=== PATIENT | male | born 1990 | race Caucasian/White ===

== ENCOUNTER → 2018-10-20 09:20 | Outpatient (CLI) | payer BC, SELFPAY ==
[2018-10-20 09:38] LABS: Absolute Lymphocyte Count 2.49 X10^3/ul (0.83-4.51); Absolute Neutrophil Count 4.4 X10^3/uL (2.0-7.7); Basophil# 0.03 X10^3/uL; Basophil% 0.4 % (0-1); Eosinophil# 0.06 X10^3/uL; Eosinophils% 0.8 % (0-5); Hematocrit 44.9 % (40-54); Hemoglobin 15.3 g/dl (13.0-16.5); Lymphocyte # 2.49 X10^3/ul (4.0); Lymphocyte % 32.9 % (19-41); Mean Corp Hgb Conc 34.1 g/gl (32-36); Mean Corpuscular Hgb 29.8 pg (27.0-32.0); Mean Corpuscular Volume 87.5 fL (80-94); Mean Platelet Vol. 8.8 fl (6.2-12.0); Monocyte# 0.56 X10^3/uL; Monocyte% 7.4 % (0-10); Neutrophil % 58.1 % (47-70); POSITIVE COUNT NO; POSITIVE DIFFERENTIAL NO; POSITIVE MORPHOLOGY NO; Platelet Count 227 K/mm3 (150-450); RBC Distribution Width CV 12.3 % (11.6-14.6); RBC Distribution Width SD 39.3 fl (35.1-43.9); Red Blood Count 5.13 M/mm3 (4.6-6.2); White Blood Count 7.6 K/mm3 (4.4-11.0)
[2018-10-20 09:52] LABS: ALB/GLOB Ratio 1.2 RATIO (0.9-2.4); AST(SGOT) 19 U/L (15-37); Alanine Aminotransfer ALT/SGPT 57 U/L (16-61); Albumin, Serum 4.1 g/dL (3.2-5.0); Alkaline Phosphatase 76 U/L (45-117); Amylase 38 U/L (25-115); Anion Gap 8 (5-15); BUN 15 mg/dL (7-18); BUN/Creat Ratio 17.5 RATIO (10-20); Chloride 107 mmol/L (98-107); Creatinine, Serum 0.86 mg/dL (0.70-1.30); EST Glomerular Filtration Rate 113 mL/min (>60); Est Glom Filt Rate - Afr Amer 137 mL/min (>60); Globulin 3.3 g/dL (2.2-4.2); Glucose 112 mg/dL (74-106); Lipase 145 U/L (73-393); Potassium 4.3 mmol/L (3.5-5.1); Protein, Total 7.4 g/dL (6.4-8.2); Sodium Level 141 mmol/L (136-145)
--- NOTE | 2018-10-20 10:12 | CT_ITS ---
STUDY: CT ABDOMEN AND PELVIS WITH CONTRAST REASON FOR EXAM: Male, 28 years old. 5 day history of left lower quadrant pain. RADIATION DOSAGE (If Supplied By Facility): CTDIvol = ( 16.11 ) mGy, DLP = ( 1228.30 ) mGycm TECHNIQUE: Transaxial images were obtained from the dome of the diaphragm to the symphysis pubis without oral contrast. 100 ml of Isovue 300 contrast was administered. Sagittal and coronal images were reconstructed. Individualized dose optimization techniques were used for this CT. COMPARISON: None. FINDINGS: The visualized lung bases are unremarkable. The visualized portions of the heart are within normal limits. Normal liver. Normal gallbladder and extrahepatic biliary system. Normal spleen. Normal pancreas. Normal bilateral adrenal glands. Normal right kidney. Normal left kidney. There is a small hiatal hernia. Mild degree of the inflammatory changes is seen in the left lower quadrant adjacent to the small bowel loops. This may be related to gastroenteritis. Clinical correlation and follow-up examination is recommended. Limited assessment due to lack of oral contrast. Normal colon. Multiple small lymph nodes are seen in the root of the mesentery as well as in the right lower quadrant suggestive of mesenteric adenitis. The appendix is visualized and appears normal. Normal abdominal aorta. Normal inferior vena cava. There is borderline retroperitoneal lymphadenopathy with enlarged nodes no greater than 10mm in the short axis diameter. Normal urinary bladder. There is a small umbilical hernia containing fat. Straightening of the normal lumbar lordosis. CT/Abdomen/Pelvis WITH Contrast IMPRESSION: Findings suggest some mild inflammatory changes surrounding the small bowel loops in the left lower quadrant as described. Clinical correlation and follow-up examination following oral contrast is recommended. Mesenteric adenitis. Electronically Signed: Sumanth Navarrete MD at 10:44 EST Tel [phone], Service support ,
--- OUTSIDE RECORDS SUMMARY | 2018-12-25 01:10 | XMS RPT_ITS | Continuity of Care Document ---
:1990 Author Organization [facility] Address [facility] [address] Phone Care Team Providers Name Role Phone Evelyn Rodriguez DO Unavailable Sy SYED, Dr. Justin Gonzalez Unavailable Prateek GELLER, Chel Sosa Unavailable Gravius, Viviane Unavailable Unavailable Slarb OXYGEN THERAPIST, Mary Jane Unavailable Unavailable Unavailable Unavailable Problems Name Dates Details Abdominal pain, LLQ (R10.32, 789.04) Comments: ? diverticulitis vs pancreatitis Status: Active Acute sinusitis, unspecified (J01.90, 461.9) Status: Active Alcohol dependence, uncomplicated (F10.20, 303.90) Status: Active Allergic rhinitis (J30.9, 477.9) Status: Active Anxiety (F41.9, 300.00) Status: Active BMI 31.0-31.9,adult (Z68.31, V85.31) Status: Active Current non-smoker but past smoking history unknown (Z78.9, V49.89) Status: Active Elevated ALT measurement (R74.0, 790.4) Status: Active Epididymal cyst (N50.3, 608.89) Status: Active Epistaxis (R04.0, 784.7) Status: Active Fatigue (R53.83, 780.79) Status: Active Headache (R51, 784.0) Status: Active History of hemolysis, elevated liver enzymes, 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, 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) Status: Active Nose bleed (784.7) Status: Active Otitis media (H66.90, 382.9) Comments: L Status: Active Pain in right testicle (N50.811, 608.9) Status: Active Pharyngitis, acute (J02.9, 462) Status: Active Sinusitis, chronic (J32.9, 473.9) Status: Active Smoker (F17.200, 305.1) Status: Active Testicular lump (N50.9, 608.89) Status: Active Tonsillar enlargement (474.11) Status: Active Unspecified Diagnosis Status: Active Vitamin D deficiency (E55.9, 268.9) Status: Active Medications Name Dates Details BusPIRone HCl 15 MG Oral Tablet 1 (one) Tablet PO BID for 30 days Quantity: 60 {Tablet} Refills: 1 Ordered:12-Jul-2018 Jovanny Rodriguez DO, DO, Kathleen Start : 12-Jul-2018 Active AUGMENTIN, 500-125MG (Oral Tablet) 1 Tablet bid for 14 days Quantity: 28 {Tablet} Refills: 0 Ordered:23-Mar-2013 Chel Chandra CNP Start : 23-Mar-2013 End : 06-Apr-2013 Inactive AUGMENTIN, 875-125MG (Oral Tablet) 1 Tablet bid for 10 days Quantity: 20 {Tablet} Refills: 0 Ordered:28-Jan-2010 Jovanny Rodriguez DO, DO, Kathleen Start : 11-Jan-2010 End : 21-Jan-2010 Inactive Ergocalciferol 91636 UNIT Oral Capsule 1 (one) Capsule Capsule weekly for 60 days Quantity: 8 {Capsule} Refills: 0 Ordered:22-Jan-2018 Keenan Arenas Start : 22-Jan-2018 End : 23-Mar-2018 Inactive LEVAQUIN, 500MG (Oral Tablet) 1 Tablet qd for 0 days Quantity: 10 {Tablet} Refills: 0 Ordered:23-Mar-2013 Dorothy Person Start : 23-Dec-2010 End : 23-Mar-2013 Inactive LORazepam 0.5 MG Oral Tablet 1 (one) Tablet PO BID PRN for 3 days Quantity: 6 {Tablet} Refills: 0 Ordered:18-Jan-2018 Jessica Zacarias Start : 18-Jan-2018 End : 21-Jan-2018 Inactive Comments:[id number] Risk-150Dx: Anxiety (F41.9) NASONEX, 50MCG/ACT (Nasal Suspension) 2 (two) Suspension qd for 0 days Quantity: 1 {Suspension} Refills: 0 Ordered:23-Mar-2013 Dorothy Person Start : 23-Dec-2010 End : 23-Mar-2013 Inactive No Known Historical Medications Allergies and Adverse Reactions Name Dates Details No Known Allergies (Allergy) Status: Active No Known Drug Allergies (Allergy) Onset: 23-Mar-2013 Status: Active Procedures Date Value Details 07-Jul-2017 Testicular with Arterial Flow Result: Comments: See Note; NOTES: [facility] [place] Imaging Services [address] [place] [address] Testicular with Arterial Flow MR#: [id number] Acct: [id number] Name: RICHARD RAMÍREZ Rep #: [id number] : 1990 M 27 From: Alejandrina Roche MD PCP: Evelyn Rodriguez DO Status: REG CLI Study: Testicular with Arterial Flow Date of Exam: 07/07/17 Exam# [id number] Ordering Dr: Jessica Zacarias AUTOMOTIVE MACHINIST-C STUDY: SCROTUM ULTRASOUND REASON FOR EXAM: Male, 27 years old. Right palpable lump TECHNIQUE: Ultrasound evaluation of the scrotum was performed with color Doppler and static lozano-scale imaging . COMPARISON: None. FINDINGS: RIGHT TESTICLE INTRATESTICULAR: There is a normal size of the right testicle. The right testicle measures 4.7 x 3.9 x 2.7 cm. There is a homogenous echotexture. There is normal arterial and normal venous vascularity. There is no demonstrated right testicular mass or cyst. EXTRATESTICULAR: The epididymis is normal in size. The epidi dymis head measures 1.2 x 2.2 x 1.2 cm. There is normal vascularity of the epididymis. There is an epididymal cyst measuring approximately 1.4 x 1 x 1.3 cm in the palpable area of concern, in the region of the epididymal head. There is a moderate size hydrocele with some dependent debris.. There is no demonstrated varicocele. LEFT TESTICLE INTRATESTICULAR: There is a normal size of the left testicle . The left testicle measures 4.6 x 3.4 x 2.8 cm. There is a homogenous echotexture. There is normal arterial and normal venous vascularity. There is no demonstrated left testicular mass or cyst. EXTRAT ESTICULAR: The epididymis is normal in size. The epididymis head measures 1.2 x 1 x 0.8 cm. There is normal vascularity of the epididymis. There is an epididymal cyst measuring 2 x 2 by 1 mm within the epididymal head. There is a small hydrocele. There is no demonstrated varicocele. There is no demonstrated extratesticular mass or cyst. US/Testi cular with Arterial Flow IMPRESSION: Bilateral epididymal cysts, the largest cyst is noted on the right and correlates with patient's palpable area of complaint. No evidence of testicular torsion or riki ticular mass. See above. Electronically Signed: Alejandrina Roche MD at 19:09 EDT Tel , Service support , CC: FIOR Zacarias; Evelyn Rodriguez DO Assistant Guest Services Manager: Signed Family History Unknown Family Member Name Dates Details First Degree Relatives Comments: Cancer Status: Active Social History Name Dates Details Alcohol Use Comments: Occasional alcohol use Status: Active Caffeine Use Comments: qd Status: Active Exercise History Comments: Exercises occasionally Status: Active Living Situation Comments: Lives with parents Status: Active No Drug Use Status: Active Pets/Animals Comments: Dog, Cat, Horse Status: Active Tobacco Use Comments: Smokes 1 pack of cigarettes per day Status: Active Vital Signs Date Test Result Details 24-Xiw-17264:17 Temperature 98.8 f Pulse 103 /min Comments: Pattern: Regular Respiration Rate 18 /min Comments: Pattern: Unlabored O2 SAT 96 % Comments: Room air BP Systolic 110 mm[Hg] Comments: Patient Position: Sitting; Cuff Location: Left Arm; Cuff Size: Standard BP Diastolic 80 mm[Hg] Comments: Patient Position: Sitting; Cuff Location: Left Arm; Cuff Size: Standard Weight 235 lb Height 72 in Body Mass Index Calculated 31.87 kg/m2 Body Surface Area Calculated 2.28 m2 :18 Pulse 87 /min Comments: Pattern: Regular Respiration Rate 18 /min Comments: Pattern: Unlabored O2 SAT 96 % Comments: Room air BP Systolic 128 mm[Hg] Comments: Patient Position: Sitting; Cuff Location: Left Arm; Cuff Size: Standard BP Diastolic 84 mm[Hg] Comments: Patient Position: Sitting; Cuff Location: Left Arm; Cuff Size: Standard Weight 235 lb Height 72 in Body Mass Index Calculated 31.87 kg/m2 Body Surface Area Calculated 2.28 m2 :17 Temperature 97.2 f Pulse 88 /min Comments: Pattern: Regular Respiration Rate 17 /min Comments: Pattern: Unlabored O2 SAT 99 % Comments: Room air BP Systolic 136 mm[Hg] Comments: Patient Position: Sitting; Cuff Location: Left Arm; Cuff Size: Standard BP Diastolic 84 mm[Hg] Comments: Patient Position: Sitting; Cuff Location: Left Arm; Cuff Size: Standard Weight 235 lb Height 72 in Body Mass Index Calculated 31.87 kg/m2 Body Surface Area Calculated 2.28 m2 :08 Temperature 97.8 f Pulse 98 /min Comments: Pattern: Regular O2 SAT 98 % Comments: Room air BP Systolic 118 mm[Hg] Comments: Patient Position: Sitting; Cuff Location: Left Arm; Cuff Size: Standard BP Diastolic 76 mm[Hg] Comments: Patient Position: Sitting; Cuff Location: Left Arm; Cuff Size: Standard Weight 235 lb Height 72 in Body Mass Index Calculated 31.87 kg/m2 Body Surface Area Calculated 2.28 m2 :57 Temperature 98 f Comments: Method: Oral Pulse 101 /min Comments: Pattern: Regular Respiration Rate 16 /min Comments: Pattern: Unlabored O2 SAT 98 % Comments: Room air BP Systolic 124 mm[Hg] Comments: Patient Position: Sitting; Cuff Location: Left Arm; Cuff Size: Standard BP Diastolic 70 mm[Hg] Comments: Patient Position: Sitting; Cuff Location: Left Arm; Cuff Size: Standard Weight 191.25 lb Height 72 in Body Mass Index Calculated 25.94 kg/m2 Body Surface Area Calculated 2.09 m2 :53 Temperature 98.4 f Comments: Method: Oral Pulse 64 /min Comments: Pattern: Regular Respiration Rate 20 /min Comments: Pattern: Unlabored BP Systolic 124 mm[Hg] Comments: Patient Position: Sitting; Cuff Location: Left Arm; Cuff Size: Large BP Diastolic 78 mm[Hg] Comments: Patient Position: Sitting; Cuff Location: Left Arm; Cuff Size: Large Weight 191.25 lb Height 72 in Body Mass Index Calculated 25.94 kg/m2 Body Surface Area Calculated 2.09 m2 :57 Temperature 98.1 f Comments: Method: Oral Pulse 72 /min Comments: Pattern: Regular Respiration Rate 20 /min Comments: Pattern: Unlabored BP Systolic 124 mm[Hg] Comments: Patient Position: Sitting; Cuff Location: Left Arm; Cuff Size: Large BP Diastolic 76 mm[Hg] Comments: Patient Position: Sitting; Cuff Location: Left Arm; Cuff Size: Large Weight 189.25 lb Height 72 in Body Mass Index Calculated 25.67 kg/m2 Body Surface Area Calculated 2.08 m2 Results Date Description Value Details 31-Jju-36092:42 Urinalysis, Office ([id number]) UA - LEUKOCYTE ESTERASE Negative (Normal) UA - NITRITE Negative (Normal) URINE UROBILINGN RAFAEL TIMED 2 mg/dL (Normal) UA - PROTEIN Negative mg/dL (Normal) UA - PH 6.0 (Normal) UA - BLOOD Negative (Normal) UA - SPECIFIC GRAVITY 1.030 (Abnormal) UA - KETONES Negative mg/dL (Normal) UA - BILIRUBIN Negative (Normal) UA - GLUCOSE Negative (Normal) 03-Wov-647204:15 HEPATIC FUNCTION PANEL Comments: PATIENT NOT FASTINGPERFORMED BY: [facility] Xntwco5635 [facility] [id number] ([id number]) ALT (SGPT) 53 [iU]/L (Abnormal) Range: 0-44 AST (SGOT) 20 [iU]/L (Normal) Range: 0-40 Alkaline Phosphatase 74 [iU]/L (Normal) Range: 39-117 Bilirubin, Direct 0.12 mg/dL (Normal) Range: 0.00-0.40 Bilirubin, Total 0.3 mg/dL (Normal) Range: 0.0-1.2 Albumin 4.9 g/dL (Normal) Range: 3.5-5.5 Protein, Total 6.8 g/dL (Normal) Range: 6.0-8.5 53-Jtd-686989:06 VITAMIN B-12 (CYANOCOBALAMIN) Comments: PATIENT NOT FASTINGPERFORMED BY: [facility]enny [facility] [place] [id number] ([id number]) Vitamin B12 528 pg/mL (Normal) Range: 232-1245 77-Hpf-943758:06 MAGNESIUM (75893) Comments: PATIENT NOT FASTINGPERFORMED BY: [facility] [address]ynce[address] [facility] [place] [id number] Magnesium 2.0 mg/dL (Normal) Range: 1.6-2.3 34-Wxd-243540:06 CALCIFIDIOL (40372) VIT D 25 Comments: PATIENT NOT FASTINGPERFORMED BY: [facility] Urjjen9617 [facility] [place] [id number] Vitamin D, 25-Hydroxy 25.0 ng/mL (Abnormal) Range: 30.0-100.0 Comments: Vitamin D deficiency has been defined by the [place] ofMedicine and an Endocrine Society practice guideline as alevel of serum 25-OH vitamin D less than 20 ng/mL (1,2).The Endocrine Society went on to further define vitamin Dinsufficiency as a level between 21 and 29 ng/mL (2).1. IOM ([place] of Medicine). 2010. Dietary reference intakes for calcium and D. [place]: The National Academies Press.2. Kimberley MF, Casey [place], Mary GAINES, et al. Evaluation, treatment, and prevention of vitamin D deficiency: an Endocrine Society clinical practice guideline. JCEM. 2010; 96(7):1911-30. 98-Vzb-027498:06 METABOLIC PANEL, COMPREHENSIVE Comments: PATIENT NOT FASTINGPERFORMED BY: [facility] Wkektf7425 [facility] [id number] (35686) ALT (SGPT) 49 [iU]/L (Abnormal) Range: 0-44 AST (SGOT) 17 [iU]/L (Normal) Range: 0-40 Alkaline Phosphatase 73 [iU]/L (Normal) Range: 39-117 Bilirubin, Total 0.4 mg/dL (Normal) Range: 0.0-1.2 A/G Ratio 2.1 (Normal) Range: 1.2-2.2 Globulin, Total 2.3 g/dL (Normal) Range: 1.5-4.5 Albumin 4.8 g/dL (Normal) Range: 3.5-5.5 Protein, Total 7.1 g/dL (Normal) Range: 6.0-8.5 Calcium 10.1 mg/dL (Normal) Range: 8.7-10.2 Carbon Dioxide, Total 25 mmol/L (Normal) Range: 18-29 Chloride 103 mmol/L (Normal) Range: 96-106 Potassium 4.7 mmol/L (Normal) Range: 3.5-5.2 Sodium 144 mmol/L (Normal) Range: 134-144 BUN/Creatinine Ratio 15 (Normal) Range: 9-20 eGFR If Africn Am 139 mL/min/1.73 (Normal) eGFR If NonAfricn Am 120 mL/min/1.73 (Normal) Creatinine 0.85 mg/dL (Normal) Range: 0.76-1.27 BUN 13 mg/dL (Normal) Range: 6-20 Glucose 95 mg/dL (Normal) Range: 65-99 25-Ebd-091223:06 TSH (THYROID STIMULATING Comments: PATIENT NOT FASTINGPERFORMED BY: [facility] [id number] HORMONE) (02259) TSH 1.690 {uIU/mL} (Normal) Range: 0.450-4.500 :32 Mononucleosis Test, Quant Comments: PATIENT NOT FASTINGPERFORMED BY: [employer] [facility] [id number] Mason Titer 1:64 (Abnormal) 21-Rwy-778510:32 EBV Panel (94602) Comments: PATIENT NOT FASTINGPERFORMED BY: [facility] [employer] [facility] [id number] Interpretation: SPRCS (Normal) Comments: EBV Interpretation Chart . Interpretation VCA-IgM EA-IgG VCA-IgG NA-ABS . Susceptible - - - - Acute Infection + +or- +or- - Convalescent Phase +or- +or- + + Chronic or Reactivated - + + +or- Old Infection - - +or- + + Antibody Present - Antibody Absent EBV Nuclear Antigen Ab, IgG <0.2 {AI} (Normal) Range: 0.0-0.8 Comments: Negative <0.9 Equivocal 0.9 - 1.0 Positive >1.0 EBV Ab VCA, IgG <0.2 {AI} (Normal) Range: 0.0-0.8 Comments: Negative <0.9 Equivocal 0.9 - 1.0 Positive >1.0 EBV Early Antigen Ab, IgG 0.8 {AI} (Normal) Range: 0.0-0.8 Comments: Negative <0.9 Equivocal 0.9 - 1.0 Positive >1.0 EBV Ab VCA, IgM 1.6 {AI} (Abnormal) Range: 0.0-0.8 Comments: Negative <0.9 Equivocal 0.9 - 1.0 Positive >1.0 :32 CBC & PLATELETS (AUTO) Comments: PATIENT NOT FASTINGPERFORMED BY: [facility] [id number] Information: [id number] (30413) Platelets 141 {x10E3/uL} (Normal) Range: 140-415 RDW 12.9 % (Normal) Range: 12.3-15.4 MCHC 34.9 g/dL (Normal) Range: 31.5-35.7 MCH 30.3 pg (Normal) Range: 26.6-33.0 MCV 87 fL (Normal) Range: 79-97 Hematocrit 45.8 % (Normal) Range: 37.5-51.0 Hemoglobin 16.0 g/dL (Normal) Range: 12.6-17.7 RBC 5.28 {x10E6/uL} (Normal) Range: 4.14-5.80 WBC 8.8 {x10E3/uL} (Normal) Range: 4.0-10.5 :32 MONOSPOT TEST (74963) Comments: PATIENT NOT FASTINGPERFORMED BY: [facility] [id number] Mason Qual W/Rflx Qn Positive (Abnormal) Comments: The sensitivity of Heterophile antibody testing is 80-90%.Sharmin Saunders IgM testing offers higher sensitivity. 86-Uii-423643:15 SUAD CULTURE-OTHER (36342) Comments: PATIENT NOT FASTINGPERFORMED BY: SAR[facility]J [facility] Xicwrb1005 [facility] [id number] Information: SRC:ROCIO [id number] Result 1 RRF (Normal) Comments: Routine respiratory herman Upper Respiratory Culture Final report (Normal) 64-Zpj-905952:28 Rapid Strep Test, Office ([id number]) Rapid Strep Test, Office Negative (Normal) Plan of Care Name Dates Details Instructions Current non-smoker but past smoking history unknown : Follow up in 1 week Indication: Current non-smoker but past smoking history unknown Current non-smoker but past smoking history unknown : Eprescribed prescriptions (G8553) Indication: Current non-smoker but past smoking history unknown Anxiety : Continue Current Prescription(s) Indication: Anxiety Anxiety : Follow up if no improvement or if symptoms worsen Indication: Anxiety Anxiety : Anxiety: anxiety Indication: Anxiety Elevated ALT measurement : Reviewed Lab Indication: Elevated ALT measurement Vitamin D deficiency : Reviewed Lab Indication: Vitamin D deficiency Smoker : Eprescribed prescriptions (G8553) Indication: Smoker Alcohol dependence, uncomplicated : Anxiety: substance abuse Indication: Alcohol dependence, uncomplicated Anxiety : Follow up in 2 weeks Indication: Anxiety Anxiety : Anxiety: anxiety Indication: Anxiety BMI 31.0-31.9,adult : Eprescribed prescriptions (G8553) Indication: BMI 31.0-31.9,adult Pain in right testicle : Follow up - Make appt after diagnostic tests Indication: Pain in right testicle Pain in right testicle : Testicular Self-Examination: testicular self-exam Indication: Pain in right testicle BMI 31.0-31.9,adult : Eprescribed prescriptions (G8553) Indication: BMI 31.0-31.9,adult Pharyngitis, acute : *URI Treatment Indication: Pharyngitis, acute Pharyngitis, acute : Sore throat: diagnosis and treatment Indication: Pharyngitis, acute Acute sinusitis, unspecified : *URI Treatment Indication: Acute sinusitis, unspecified Acute sinusitis, unspecified : *URI Symptoms Indication: Acute sinusitis, unspecified Acute sinusitis, unspecified : *Antibiotic Usage Education - Male Indication: Acute sinusitis, unspecified Acute sinusitis, unspecified : *URI Treatment Indication: Acute sinusitis, unspecified Acute sinusitis, unspecified : *URI Symptoms Indication: Acute sinusitis, unspecified Acute sinusitis, unspecified : *Antibiotic Usage Education - Male Indication: Acute sinusitis, unspecified Planned Observations Metabolic Panel, Comprehensive (71561)Indication: Abdominal pain, LLQ On: :56 Request CBC, Platelets & Auto Diff (58635)Indication: Abdominal pain, LLQ On: :55 Request AMYLASE (41535)Indication: Abdominal pain, LLQ On: :55 Request LIPASE (31698)Indication: Abdominal pain, LLQ On: :55 Request HEPATIC FUNCTION PANEL (51479)Indication: Elevated ALT measurement On: 5-Ngt-837660:59 Request CALCIFEDIOL (20138)Indication: Vitamin D deficiency On: 89-Pub-756949:[address] - Abdomen & Pelvis (IV Contrast Needed)By: Chel Chandra CNP On: 20-Oct-2018 Intent E Ultrasound - TesticularBy: Jessica Zacarias On: 07-Jul-2017 Intent SPECIMEN HNDLNG/TRNSPRT, OFFC > LAB (26429)By: Chel Chandra CNP On: 23-Mar-2013 Intent E Eprescribed prescriptions (G8553)By: Dorothy Person On: 23-Mar-2013 Intent Instructions Name Dates Details Current non-smoker but past smoking history unknown : How to access health information online Indication: Current non-smoker but past smoking history unknown Current non-smoker but past smoking history unknown : How to access health information online - Detail Indication: Current non-smoker but past smoking history unknown Current non-smoker but past smoking history unknown : Patient Instructions Indication: Current non-smoker but past smoking history unknown Smoker : How to access health information online Indication: Smoker Smoker : How to access health information online - Detail Indication: Smoker Anxiety : Patient Instructions Indication: Anxiety BMI 31.0-31.9,adult : How to access health information online Indication: BMI 31.0-31.9,adult BMI 31.0-31.9,adult : How to access health information online - Detail Indication: BMI 31.0-31.9,adult Anxiety : Patient Instructions Indication: Anxiety BMI 31.0-31.9,adult : How to access health information online Indication: BMI 31.0-31.9,adult BMI 31.0-31.9,adult : How to access health information online - Detail Indication: BMI 31.0-31.9,adult BMI 31.0-31.9,adult : Patient Instructions Indication: BMI 31.0-31.9,adult Fatigue : Patient Instructions Indication: Fatigue Encounters Review On: 20-Oct-2018 8:58 Encounter Diagnosis: Unspecified Diagnosis [facility] Office Visit On: 20-Oct-2018 8:11 Encounter Reason: Abdominal pain - The onset of the pain has been sudden and has been occurring in a persistent pattern. The course has been increasing. The pain is described as a moderate stabbing and crampy. The pain i End: 20-Oct-2018 8:57 s described as being located in the left lower quadrant. The symptoms are aggravated by motion. The symptoms have been associated with nausea. Note for Pain: Sudden abd pain, left side started 4 days ago, Worse as day goes on. Gets sharp pain. No history of kidney stone. ??Weekend drinker. Builds [employer] [ADDITIONAL REASON] Insomnia - Note for Insomnia: Wakes up 3-4 times per night Encounter Diagnosis: BMI 31.0-31.9,adult, Current non-smoker but past smoking history unknown, Abdominal pain, LLQ, History of hemolysis, elevated liver enzymes, and low platelet (HELLP) syndrome [facility] Annotation/Addendum On: 04-Feb-2018 14:59 Encounter Diagnosis: Elevated ALT measurement End: 04-Feb-2018 15:00 [facility] Office Visit On: 01-Feb-2018 11:10 Encounter Reason: Anxiety - Symptoms include anxiety, insomnia, nervousness, panic attacks, sweaty palms and sleep disruption. Onset was gradual. The symptoms occur constantly. The patient describes this as worsening. As End: 01-Feb-2018 11:38 sociated symptoms include racing heart and shortness of breath. Since diagnosis the disease has been worsening. Previous presentation included excessive worry, insomnia, panic attacks, sweaty palms, sle ep disruption, racing heart and shortness of breath. Note for Anxiety: Symptoms started 6-7 months ago-is getting worse to the point of throwing up, sweats, SOB, difficulty sleeping. Not sure why havi ng these anxiety attacks and anxiety. Feels work is going well, relationships are well. Life is good. Did state that he has a lot of responsibilities at work, but doesn't feel like it is affecting him. Drinks a lot during the weekend. (went out this weekend to the bar and had about 15 beers and a couple shots). Has looked into talking with someone in [place], but hasn't actually done it. Doesn't li ke feeling like this and needs something to help this feeling. Was given Ativan in Jul. from Dr. Rodriguez for anxiety-not sure that helped or not. Not aware of any family history of anxiety-family doesn' t talk about that stuff.02/01/18-2 week follow up on anxiety-Feeling much better- doesn't get to the point of nausea, and throwing up in the morning, sleeping better. Hasn't looked into a counselor at th is point in time. Feeling a lot better on 10mg BID-bumped medication up to 15 BID and started getting dizzy. Has one ativan left., [ADDITIONAL REASON] Other Symptoms - Note for Other Symptoms: light headedness-- It started when I bumped my new med up to 15mg BID Encounter Diagnosis: Anxiety, BMI 31.0-31.9,adult, Smoker, Elevated ALT measurement, Vitamin D deficiency [facility] Annotation/Addendum On: 22-Jan-2018 14:09 Encounter Diagnosis: Vitamin D deficiency End: 22-Jan-2018 14:13 [facility] Office Visit On: 18-Jan-2018 8:13 Encounter Reason: Anxiety - Symptoms include anxiety, insomnia, nervousness, panic attacks, sweaty palms and sleep disruption. Onset was gradual. The symptoms occur constantly. The patient describes this as worsening. As End: 18-Jan-2018 11:17 sociated symptoms include racing heart and shortness of breath. Since diagnosis the disease has been worsening. Previous presentation included excessive worry, insomnia, panic attacks, sweaty palms, sle ep disruption, racing heart and shortness of breath. Note for Anxiety: Symptoms started 6-7 months ago-is getting worse to the point of throwing up, sweats, SOB, difficulty sleeping. Not sure why xenia ng these anxiety attacks and anxiety. Feels work is going well, relationships are well. Life is good. Did state that he has a lot of responsibilities at work, but doesn't feel like it is affecting him. Drinks a lot during the weekend. (went out this weekend to the bar and had about 15 beers and a couple shots). Has looked into talking with someone in [place], but hasn't actually done it. Doesn't li ke feeling like this and needs something to help this feeling. Was given Ativan in Jul. from Dr. Rodriguez for anxiety-not sure that helped or not. Not aware of any family history of anxiety-family doesn't talk about that stuff.Encounter Diagnosis: BMI 31.0-31.9,adult, Anxiety, Smoker, Alcohol dependence, uncomplicated [facility] Phone Encounter On: 13-Jul-2017 11:37 Encounter Diagnosis: Epididymal cyst End: 13-Jul-2017 11:47 [facility] Office Visit On: 07-Jul-2017 10:01 Encounter Reason: Testicular Pain - Symptoms include testicular pain (small lump), while symptoms do not include urinary frequency or penile discharge. Onset was gradual 1 month(s) ago. The symptoms occur constantly. The End: 07-Jul-2017 11:40 episodes occur daily and last for 30 days. The patient describes this as moderate in severity and worsening. The patient is not currently being treated for this problem. Note for Testicular pain: Sym ptoms started a month ago. Pt found 2 lumps in right testicle, that float around. Noticed the lumps while in the shower. Intermittent Pain started 2-3 weeks in right testicle. Pain with sitting, stand ing, and walking. No injury, fever or chills. No issues with urinating, abd pain, groin pain, no swelling. ??He is a director social service-lifts heavy objects occassionally.Encounter Diagnosis: BMI 31.0-31.9,adult, Smoker, Testicular lump, Pain in right testicle [facility] Office Visit On: 23-Mar-2013 13:45 Encounter Reason: Fatigue - Symptoms include fatigue, while symptoms do not include poor sleep, impaired memory or impaired concentration. Onset was day(s) ago. The symptoms occur constantly. The patient describes this a End: 23-Mar-2013 16:34 s worsening. Symptoms are not exacerbated by physical activity, stress or taking medication.Encounter Diagnosis: Fatigue (780.79), Tonsillar enlargement (474.11), ACUTE PHARYNGITIS (462.) [facility] Office Visit On: 23-Dec-2010 10:53 Encounter Reason: Cough - The onset of the cough has been sudden and has been occurring in a persistent pattern for 1 week. The course has been constant. The cough is characterized as productive of mucoid sputum. The sachi End: 23-Dec-2010 11:26 unt of sputum produced is copious. The cough occurs all the time. The symptoms are aggravated by supine posture and particular position, but not by meals. The symptoms have been associated with hoarsene ss, runny nose, sore throat and wheezing, while the symptoms have not been associated with fever or headache.Encounter Diagnosis: Acute sinusitis, unspecified (461.9), OTITIS MEDIA NOS (382.9) [facility] Historical Summary On: 28-Jan-2010 15:32 [facility] End: 28-Jan-2010 15:34 Office Visit On: 11-Jan-2010 7:56 Encounter Reason: Sinusitis/ - The duration of the symptoms are 1 week The course has been worsening. The sinusitis/ has no relieving factors. Associated features include The symptoms have been associated with cough ,sima End: 11-Jan-2010 9:24 al discharge/stuffy nose ,sinus pain and sore throat, while the symptoms have not been associated with ear pain or teeth pain. No previous evaluations were reported. allergies. , [ADDITIONAL REASON] Nose bleed - The onset of the nose bleed has been gradual and has been occurring in an intermittent pattern for 15 years. The course has been recurrent. The amount of bleeding is he maurice. The bleeding occurs from the left nostril. There are no precipitating factors. The symptoms have no relieving factors. There has been no associated easy bruisability or use of aspirin (although has had nose bleeds off and on for yrs-- past couple weeks having a couple a day --). Encounter Diagnosis: Acute sinusitis, unspecified (461.9), SYMPTOM, EPISTAXIS (784.7) [facility] Payers Leno JANG/Brad Ramírez; a guarantor
--- OUTSIDE RECORDS SUMMARY | 2018-12-25 01:10 | XMS RPT_ITS | Continuity of Care Document ---
:1990 Author Organization [facility] Address [address] [place] [id number] Phone Care Team Providers Name Role Phone Evelyn Rodriguez DO Unavailable Sy SYED, Dr. Justin Gonzalez Unavailable Keenan Arenas Unavailable Unavailable Jessica Zacarias Unavailable Mary Jane Stanley LPN Unavailable Unavailable Unavailable Unavailable Problems Name Dates Details Acute sinusitis, unspecified (J01.90, 461.9) Status: Active Alcohol dependence, uncomplicated (F10.20, 303.90) Status: Active Allergic rhinitis (J30.9, 477.9) Status: Active Anxiety (F41.9, 300.00) Status: Active BMI 31.0-31.9,adult (Z68.31, V85.31) Status: Active Elevated ALT measurement (R74.0, 790.4) Status: Active Epididymal cyst (N50.3, 608.89) Status: Active Epistaxis (R04.0, 784.7) Status: Active Fatigue (R53.83, 780.79) Status: Active Headache (R51, 784.0) Status: Active Nose bleed (784.7) Status: Active Otitis media (H66.90, 382.9) Comments: L Status: Active Pain in right testicle (N50.811, 608.9) Status: Active Pharyngitis, acute (J02.9, 462) Status: Active Sinusitis, chronic (J32.9, 473.9) Status: Active Smoker (F17.200, 305.1) Status: Active Testicular lump (N50.9, 608.89) Status: Active Tonsillar enlargement (474.11) Status: Active Vitamin D deficiency (E55.9, 268.9) Status: Active Medications Name Dates Details BusPIRone HCl 15 MG Oral Tablet 1 (one) Tablet PO BID for 30 days Quantity: 60 {Tablet} Refills: 1 Ordered:12-Jul-2018 Jovanny Rodriguez DO, DO, Kathleen Start : 12-Jul-2018 Active AUGMENTIN, 500-125MG (Oral Tablet) 1 Tablet bid for 14 days Quantity: 28 {Tablet} Refills: 0 Ordered:23-Mar-2013 Prateek GELLER Kassy Start : 23-Mar-2013 End : 06-Apr-2013 Inactive AUGMENTIN, 875-125MG (Oral Tablet) 1 Tablet bid for 10 days Quantity: 20 {Tablet} Refills: 0 Ordered:28-Jan-2010 Jovanny Rodriguez DO, DO, Kathleen Start : 11-Jan-2010 End : 21-Jan-2010 Inactive Ergocalciferol 57012 UNIT Oral Capsule 1 (one) Capsule Capsule [...] Start : 18-Jan-2018 End : 21-Jan-2018 Inactive Comments:[id number]-000OD Risk-150Dx: Anxiety (F41.9) NASONEX, 50MCG/ACT (Nasal Suspension) [...] Arterial Flow Result: Comments: See Note; NOTES: [facility] Imaging Services [address] [place] [address] Testicular with Arterial Flow MR#: [id number] Acct: [id number] Name: RICHARD RAMÍREZ Rep #: [id number] : 1990 M 27 From: Alejandrina Roche MD PCP: Evelyn Rodriguez DO Status: REG CLI Study: Testicular with Arterial Flow Date of Exam: 07/07/17 Exam# [id number] Ordering Dr: Jessica Zacarias SHIP RIGGER-C STUDY: SCROTUM ULTRASOUND REASON FOR EXAM: Male, [...] , CC: FIOR Zacarias; Evelyn Rodriguez DO [employer]: Signed Family History Unknown Family Member Name [...] Active Vital Signs Date Test Result Details 02-Wlf-463382:18 Pulse 87 /min Comments: Pattern: Regular Respiration [...] 2.08 m2 Results Date Description Value Details 25-Gmz-821706:15 HEPATIC FUNCTION PANEL Comments: PATIENT NOT FASTINGPERFORMED BY: SAROJ Yoo [id number] [facility] [id number] ([id number]) ALT (SGPT) 53 [iU]/L (Abnormal) Range: 0-44 AST (SGOT) 20 [iU]/L (Normal) Range: 0-40 Alkaline Phosphatase 74 [iU]/L (Normal) Range: 39-117 Bilirubin, Direct 0.12 mg/dL (Normal) Range: 0.00-0.40 Bilirubin, Total 0.3 mg/dL (Normal) Range: 0.0-1.2 Albumin 4.9 g/dL (Normal) Range: 3.5-5.5 Protein, Total 6.8 g/dL (Normal) Range: 6.0-8.5 23-Ubd-055266:06 VITAMIN B-12 (CYANOCOBALAMIN) Comments: PATIENT NOT FASTINGPERFORMED BY: [facility]J [facility] Edgsfk9078 [facility] [id number] (18424) Vitamin B12 528 pg/mL (Normal) Range: 232-1245 86-Qgy-554511:06 MAGNESIUM (83921) Comments: PATIENT NOT FASTINGPERFORMED BY: SAROJ Kiddlin6370 [facility] [id number] Magnesium 2.0 mg/dL (Normal) Range: 1.6-2.3 91-Vfd-134996:06 CALCIFIDIOL (27078) VIT D 25 Comments: PATIENT NOT FASTINGPERFORMED BY: SAROJ [facility]6370 [facility] [id number] Vitamin D, 25-Hydroxy 25.0 ng/mL (Abnormal) Range: 30.0-100.0 Comments: Vitamin D deficiency has been defined by the [place] of[place] and an Endocrine Society practice guideline as alevel of serum 25-OH vitamin D less than 20 ng/mL (1,2).The Endocrine Society went on to further define vitamin Dinsufficiency as a level between 21 and 29 ng/mL (2).1. IOM ([place] of [employer]). 2010. Dietary reference intakes for calcium and D. [place]: The National Academies Press.2. Kimberley MF, Casey [place], Mary GAINES, et al. Evaluation, treatment, and prevention of vitamin D deficiency: an Endocrine Society clinical practice guideline. JCEM. 2010; 96(7):5331-30. 98-Lft-352021:06 METABOLIC PANEL, COMPREHENSIVE Comments: PATIENT NOT FASTINGPERFORMED BY: [employer] Axyioj4444 [facility] [id number] (53884) ALT (SGPT) 49 [iU]/L (Abnormal) Range: 0-44 [...] 6-20 Glucose 95 mg/dL (Normal) Range: 65-99 30-Dva-458048:06 TSH (THYROID STIMULATING Comments: PATIENT NOT FASTINGPERFORMED BY: [facility] Vesggz9477 [place] [id number] HORMONE) (23309) TSH 1.690 {uIU/mL} (Normal) Range: 0.450-4.500 :32 Mononucleosis Test, Quant Comments: PATIENT NOT FASTINGPERFORMED BY: [place] [id number] [facility] [id number] Mcdonald Titer 1:64 (Abnormal) :32 EBV Panel (51019) Comments: PATIENT NOT FASTINGPERFORMED BY: [place] [id number] [facility] [id number] Interpretation: SPRCS (Normal) Comments: EBV Interpretation Chart [...] PLATELETS (AUTO) Comments: PATIENT NOT FASTINGPERFORMED BY: [facility]6370 [facility] [id number] Information: [id number] (76674) Platelets 141 {x10E3/uL} (Normal) Range: 140-415 RDW 12.9 % (Normal) Range: 12.3-15.4 MCHC 34.9 g/dL (Normal) Range: 31.5-35.7 MCH 30.3 pg (Normal) Range: 26.6-33.0 MCV 87 fL (Normal) Range: 79-97 Hematocrit 45.8 % (Normal) Range: 37.5-51.0 Hemoglobin 16.0 g/dL (Normal) Range: 12.6-17.7 RBC 5.28 {x10E6/uL} (Normal) Range: 4.14-5.80 WBC 8.8 {x10E3/uL} (Normal) Range: 4.0-10.5 :32 MONOSPOT TEST (84237) Comments: PATIENT NOT FASTINGPERFORMED BY: [place]CoY[place] [id number] [facility] [id number] Mcdonald Qual W/Rflx Qn Positive (Abnormal) Comments: The sensitivity of Heterophile antibody testing is 80-90%.Sharmin Saunders IgM testing offers higher sensitivity. 62-Qxa-088429:15 SUAD CULTURE-OTHER (32102) Comments: PATIENT NOT FASTINGPERFORMED BY: LabCoSt. Lawrence Rehabilitation CenterJxbzft5644 [facility] [id number] Information: SRC:THRT [id number] Result 1 RRF (Normal) Comments: Routine respiratory herman Upper Respiratory Culture Final report (Normal) 77-Yfe-098473:28 Rapid Strep Test, Office (69522) Rapid Strep Test, Office Negative (Normal) Plan of Care Name Dates Details Instructions Anxiety : Continue Current Prescription(s) Indication: Anxiety [...] Male Indication: Acute sinusitis, unspecified Planned Observations HEPATIC FUNCTION PANEL (88672)Indication: Elevated ALT measurement On: 4-Bwt-102809:59 Request CALCIFEDIOL (51808)Indication: Vitamin D deficiency On: 04-Qug-849850:13 Request Planned Procedures Ultrasound - TesticularBy: Jessica Zacarias On: 07-Jul-2017 Intent SPECIMEN HNDLNG/TRNSPRT, OFFC > LAB (87595)By: Chel Chandra CNP On: 23-Mar-2013 Intent E Eprescribed prescriptions (G8553)By: Dorothy Person On: 23-Mar-2013 Intent Instructions Name Dates Details Smoker : How to access health information [...] Fatigue : Patient Instructions Indication: Fatigue Encounters Annotation/Addendum On: 04-Feb-2018 14:59 Encounter Diagnosis: Elevated [...] Has looked into talking with someone in [place], but hasn't actually done it. Doesn't li [...] Has looked into talking with someone in [place], but hasn't actually done it. Doesn't li [...] groin pain, no swelling. 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
--- OUTSIDE RECORDS SUMMARY | 2018-12-25 01:10 | XMS RPT_ITS | Continuity of Care Document ---
:1990 Author Organization [facility] Address [facility] [address] Phone Care Team Providers Name Role Phone Evelyn Rodriguez DO Unavailable Sy SYED, Dr. 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 Mesenteric adenitis (I88.0, 289.2) Comments: was in [place] 2 weeks prior has gastroenteritis on CT as well will treat with xifaxin and follow up if not better Status: Active Nose bleed (784.7) Status: Active Otitis media (H66.90, 382.9) Comments: L Status: Active Pain in right testicle (N50.811, 608.9) Status: Active Pharyngitis, acute (J02.9, 462) Status: Active Sinusitis, chronic (J32.9, 473.9) Status: Active Smoker (F17.200, 305.1) Status: Active Testicular lump (N50.9, 608.89) Status: Active Tonsillar enlargement (474.11) Status: Active Umbilical hernia (K42.9, 553.1) Status: Active Unspecified Diagnosis Status: Active Vitamin D deficiency (E55.9, 268.9) Status: Active Medications Name Dates Details BusPIRone HCl 15 MG Oral Tablet 1 (one) Tablet PO BID for 30 days Quantity: 60 {Tablet} Refills: 1 Ordered:12-Jul-2018 Jovanny Rodriguez DO, DO, Kathleen Start : 12-Jul-2018 Active Xifaxan 550 MG Oral Tablet 1 (one) Tablet tid x 3 days for 0 days Quantity: 9 {Tablet} Refills: 0 Ordered:25-Oct-2018 Chel Chandra CNP Start : 25-Oct-2018 Active AUGMENTIN, 500-125MG (Oral Tablet) 1 Tablet bid for 14 days Quantity: 28 {Tablet} Refills: 0 Ordered:23-Mar-2013 Chel Chandra CNP Start : 23-Mar-2013 End : 06-Apr-2013 Inactive AUGMENTIN, 875-125MG (Oral Tablet) 1 Tablet bid for 10 days Quantity: 20 {Tablet} Refills: 0 Ordered:28-Jan-2010 Jovanny Rodriguez DO, DO, Kathleen Start : 11-Jan-2010 End : 21-Jan-2010 Inactive Ergocalciferol 37474 UNIT Oral Capsule 1 (one) Capsule Capsule weekly for 60 days Quantity: 8 {Capsule} Refills: 0 Ordered:22-Jan-2018 Dagoberto Keenan Start : 22-Jan-2018 End : 23-Mar-2018 Inactive LEVAQUIN, 500MG (Oral Tablet) 1 Tablet qd for 0 days Quantity: 10 {Tablet} Refills: 0 Ordered:23-Mar-2013 Dorothy Person Start : 23-Dec-2010 End : 23-Mar-2013 Inactive LORazepam 0.5 MG Oral Tablet 1 (one) Tablet PO BID PRN for 3 days Quantity: 6 {Tablet} Refills: 0 Ordered:18-Jan-2018 Rell Jessica Start : 18-Jan-2018 End : 21-Jan-2018 Inactive Comments:Quyyybgx-518Vxroohow-333Llhxcakjf-000OD Risk-150Dx: Anxiety (F41.9) NASONEX, 50MCG/ACT (Nasal Suspension) 2 (two) Suspension qd for 0 days Quantity: 1 {Suspension} Refills: 0 Ordered:23-Mar-2013 Dorothy Person Start : 23-Dec-2010 End : 23-Mar-2013 Inactive No Known Historical Medications Allergies and Adverse Reactions Name Dates Details No Known Allergies (Allergy) Status: Active No Known Drug Allergies (Allergy) Onset: 23-Mar-2013 Status: Active Procedures Date Value Details 20-Oct-2018 Abdomen/Pelvis WITH Contrast Result: Comments: See Note; NOTES: [facility] [address] [place] [id number] Abdomen/Pelvis WITH Contrast MR#: [id number] Acct: [id number] Name: SHIVARICHARD MAYA Phil Rep # : [id number] : 1990 M 28 From: Sumanth Navarrete MD PCP: Evelyn Rodriguez DO Status: REG CLI Study: Abdomen/Pelvis WITH Contrast Date of Exam: 10/20/18 Exam# [id number] Ordering Dr: Chel Chandra STUDY: CT ABDOMEN AND PELVIS WITH CONTRAST REASON FOR EXAM: Male, 28 years old. 5 day history of left lower quadrant pain. RADIATION DOSAGE (If Supplied By Facility): CTDIvol = ( 16.11 ) mGy, DL P = ( 1228.30 ) mGycm TECHNIQUE: Transaxial images were obtained from the dome of the diaphragm to the symphysis pubis without oral contrast. 100 ml of Isovue 300 contrast was administered. Sagittal an d coronal images were reconstructed. Individualized dose optimization techniques were used for this CT. COMPARISON: None. FINDINGS: The visualized lung bases are u nremarkable. The visualized portions of the heart are within normal limits. Normal liver. Normal gallbladder and extrahepatic biliary system. Normal spleen. Normal pancreas. Normal bilateral adrenal g lands. Normal right kidney. Normal left kidney. There is a small hiatal hernia. Mild degree of the inflammatory changes is seen in the left lower quadrant adjacent to the small bowel loops. This may b e related to gastroenteritis. Clinical correlation and follow-up examination is recommended. Limited assessment due to lack of oral contrast. Normal colon. Multiple small lymph nodes are seen in the haim t of the mesentery as well as in the right lower quadrant suggestive of mesenteric adenitis. The appendix is visualized and appears normal. Normal abdominal aorta. Normal inferior vena cava. There is b orderline retroperitoneal lymphadenopathy with enlarged nodes no greater than 10mm in the short axis diameter. Normal urinary bladder. There is a small umbilical hernia containing fat. Straightening o f the normal lumbar lordosis. 0016 CT/Abdomen/Pelvis WITH Contrast IMPRESSION: Findings suggest some mild inflammatory changes surrounding the small b owel loops in the left lower quadrant as described. Clinical correlation and follow- up examination following oral contrast is recommended. Mesenteric adenitis. Electronically Signed: Sumanth Navarrete MD at 10:44 EST Tel [phone], Service support , CC: Chel Chandra NP; Evelyn Rodriguez DO Special Procedures Tech: Signed 07-Jul-2017 Testicular with Arterial Flow Result: Comments: See Note; NOTES: [facility] [address] [place] [address] Testicular with Arterial Flow MR#: [id number] Acct: [id number] Name: RICHARD RAMÍREZ Rep #: [id number] : 1990 M 27 From: Alejandrina Roche MD PCP: Evelyn Rodriguez DO Status: REG CLI Study: Testicular with Arterial Flow Date of Exam: 07/07/17 Exam# [id number] Ordering Dr: Jessica Zacarias SIDE LASTER STAPLE-C STUDY: SCROTUM ULTRASOUND REASON FOR EXAM: Male, [...] is no demonstrated extratesticular mass or cyst. US/Cierra marie with Arterial Flow IMPRESSION: Bilateral epididymal cysts, the largest cyst is noted on the right and correlates with patient's palpable area of complaint. No evidence of testicular torsion or riki ticular mass. See above. Electronically Signed: Alejandrina Roche MD at 19:09 EDT Tel , Service support , CC: FIOR Zacarias; Evelyn Rodriguez DO Special Procedures Tech: Signed Family History Unknown Family Member Name [...] Active Vital Signs Date Test Result Details 37-Gby-761226:29 Temperature 98.3 f Comments: Method: Temporal Pulse 93 /min Comments: Pattern: Regular Respiration Rate 16 /min Comments: Pattern: Unlabored O2 SAT 98 % Comments: Room air BP Systolic 126 mm[Hg] Comments: Patient Position: Sitting; Cuff Location: Left Arm; Cuff Size: Standard BP Diastolic 74 mm[Hg] Comments: Patient Position: Sitting; Cuff Location: Left Arm; Cuff Size: Standard Weight 235 lb Height 72 in Body Mass Index Calculated 31.87 kg/m2 Body Surface Area Calculated 2.28 m2 :17 Temperature 98.8 f Pulse 103 /min Comments: [...] kg/m2 Body Surface Area Calculated 2.28 m2 24-Rad-926005:18 Pulse 87 /min Comments: Pattern: Regular Respiration [...] 2.08 m2 Results Date Description Value Details :28 Amylase Comments: [facility] [address] [place], [address] TESSY 38 U/L (Normal) Range: 25-115 :28 CBC W/Diff, Automated Comments: [facility] [address] [place], [address] Absolute Lymph 2.49 {X10_3/ul} (Normal) Range: 0.83-4.51 Absolute Neut 4.4 {X10_3/uL} (Normal) Range: 2.0-7.7 IM GRAN % 0.400 % (Normal) Range: 0.0-0.9 Comments: IG% - Immature Granulocytes (promyelocytes, myelocytes andmetamyelocytes) > 1% indicates that a LEFT SHIFT is Present. BASO% 0.4 % (Normal) Range: 0-1 EO% 0.8 % (Normal) Range: 0-5 MONO% 7.4 % (Normal) Range: 0-10 LY% 32.9 % (Normal) Range: 19-41 NEUT% 58.1 % (Normal) Range: 47-70 MPV 8.8 fL (Normal) Range: 6.2-12.0 PLT 227 K/mm3 (Normal) Range: 150-450 RDW SD 39.3 fL (Normal) Range: 35.1-43.9 RDW CV 12.3 % (Normal) Range: 11.6-14.6 MCHC 34.1 {g/gl} (Normal) Range: 32-36 MCH 29.8 pg (Normal) Range: 27.0-32.0 MCV 87.5 fL (Normal) Range: 80-94 HCT 44.9 % (Normal) Range: 40-54 HGB 15.3 g/dL (Normal) Range: 13.0-16.5 RBC 5.13 {M/mm3} (Normal) Range: 4.6-6.2 WBC 7.6 K/mm3 (Normal) Range: 4.4-11.0 87-Xlr-88509:28 Comprehensive Metabolic Profil Comments: [facility] [address] [place], [address] GAP 8 (Normal) Range: 5-15 CO2 26.0 mmol/L (Normal) Range: 21.0-32.0 CL 107 mmol/L (Normal) Range: 98-107 K 4.3 mmol/L (Normal) Range: 3.5-5.1 NA 141 mmol/L (Normal) Range: 136-145 T BILI 0.60 mg/dL (Normal) Range: 0.20-1.00 ALT 57 U/L (Normal) Range: 16-61 ALK P 76 U/L (Normal) Range: 45-117 AST 19 U/L (Normal) Range: 15-37 CA 9.0 mg/dL (Normal) Range: 8.5-10.1 A/G 1.2 {RATIO} (Normal) Range: 0.9-2.4 GLOB 3.3 g/dL (Normal) Range: 2.2-4.2 ALB 4.1 g/dL (Normal) Range: 3.2-5.0 T PROT 7.4 g/dL (Normal) Range: 6.4-8.2 BUN/CRE 17.5 {RATIO} (Normal) Range: 10-20 EST GFR - AA 137 mL/min (Normal) Comments: GFR Calc EST GFR 113 mL/min (Normal) Comments: Non- GFR Calc CREAT,SERUM 0.86 mg/dL (Normal) Range: 0.70-1.30 Comments: The validity of the calculated GFR AND GFRAA in patients over70 years has not been determined. Clinical correlation isessential. BUN 15 mg/dL (Normal) Range: 7-18 GLU 112 mg/dL (Abnormal) Range: 74-106 Comments: Fasting Glucose result from 100 to 125 mg/dLsuggests IMPAIRED HOMEOSTASIS per A.D.A. criteria.Please note revised GLUCOSE reference range sspmoyktq31/02/2018. 86-Xxf-71245:28 Lipase Comments: [facility] [address] [place], [address] LIPASE 145 U/L (Normal) Range: 73-393 49-Iga-21054:42 Urinalysis, Office (08907) UA - LEUKOCYTE ESTERASE Negative (Normal) UA - NITRITE Negative (Normal) URINE UROBILINGN RAFAEL TIMED 2 mg/dL (Normal) UA - PROTEIN Negative mg/dL (Normal) UA - PH 6.0 (Normal) UA - BLOOD Negative (Normal) UA - SPECIFIC GRAVITY 1.030 (Abnormal) UA - KETONES Negative mg/dL (Normal) UA - BILIRUBIN Negative (Normal) UA - GLUCOSE Negative (Normal) 49-Fgi-017654:15 HEPATIC FUNCTION PANEL Comments: PATIENT NOT FASTINGPERFORMED BY: atokore Moreau [facility] [id number] ([id number]) ALT (SGPT) 53 [iU]/L (Abnormal) Range: 0-44 AST (SGOT) 20 [iU]/L (Normal) Range: 0-40 Alkaline Phosphatase 74 [iU]/L (Normal) Range: 39-117 Bilirubin, Direct 0.12 mg/dL (Normal) Range: 0.00-0.40 Bilirubin, Total 0.3 mg/dL (Normal) Range: 0.0-1.2 Albumin 4.9 g/dL (Normal) Range: 3.5-5.5 Protein, Total 6.8 g/dL (Normal) Range: 6.0-8.5 67-Tdx-162707:06 VITAMIN B-12 (CYANOCOBALAMIN) Comments: PATIENT NOT FASTINGPERFORMED BY: atokore Moreau [facility] Hospital[facility]outBoxAt[facility] [id number] ([id number]) Vitamin B12 528 pg/mL (Normal) Range: 232-1245 38-Iei-107735:06 MAGNESIUM (81244) Comments: PATIENT NOT FASTINGPERFORMED BY: atokore Moreau [facility] [id number] Magnesium 2.0 mg/dL (Normal) Range: 1.6-2.3 16-Ksk-824391:06 CALCIFIDIOL (16912) VIT D 25 Comments: PATIENT NOT FASTINGPERFORMED BY: [facility] Wggoyr9208 [facility] [id number] Vitamin D, 25-Hydroxy 25.0 ng/mL (Abnormal) Range: 30.0-100.0 Comments: Vitamin D deficiency has been defined by the [place] ofMedicine and an Endocrine Society practice guideline as alevel of serum 25-OH vitamin D less than 20 ng/mL (1,2).The Endocrine Society went on to further define vitamin Dinsufficiency as a level between 21 and 29 ng/mL (2).1. IOM ([place] of Medicine). 2010. Dietary reference intakes for calcium and D. [place]: The National Academies Press.2. Kimberley MF, Casey NAGY, Mary GAINES, et al. Evaluation, treatment, and prevention of vitamin D deficiency: an Endocrine Society clinical practice guideline. JCEM. 2010; 96(7):1911-30. 12-Vwh-640661:06 METABOLIC PANEL, COMPREHENSIVE Comments: PATIENT NOT FASTINGPERFORMED BY: [facility]Co[facility] UnionDfzvhq4123 [facility] [id number] (75982) ALT (SGPT) 49 [iU]/L (Abnormal) Range: 0-44 [...] 6-20 Glucose 95 mg/dL (Normal) Range: 65-99 42-Nqs-799945:06 TSH (THYROID STIMULATING Comments: PATIENT NOT FASTINGPERFORMED BY: [facility]iftAt[facility] [id number] HORMONE) (41684) TSH 1.690 {uIU/mL} (Normal) Range: 0.450-4.500 :32 Mononucleosis Test, Quant Comments: PATIENT NOT FASTINGPERFORMED BY: [facility] [id number] [place] Titer 1:64 (Abnormal) :32 EBV Panel (19013) Comments: PATIENT NOT FASTINGPERFORMED BY: [facility]The [facility] [id number] Interpretation: SPRCS (Normal) Comments: EBV Interpretation Chart [...] PLATELETS (AUTO) Comments: PATIENT NOT FASTINGPERFORMED BY: [address] [id number] Information: [id number] (49812) Platelets 141 {x10E3/uL} (Normal) Range: 140-415 RDW 12.9 % (Normal) Range: 12.3-15.4 MCHC 34.9 g/dL (Normal) Range: 31.5-35.7 MCH 30.3 pg (Normal) Range: 26.6-33.0 MCV 87 fL (Normal) Range: 79-97 Hematocrit 45.8 % (Normal) Range: 37.5-51.0 Hemoglobin 16.0 g/dL (Normal) Range: 12.6-17.7 RBC 5.28 {x10E6/uL} (Normal) Range: 4.14-5.80 WBC 8.8 {x10E3/uL} (Normal) Range: 4.0-10.5 :32 MONOSPOT TEST (13462) Comments: PATIENT NOT FASTINGPERFORMED BY: [place] [id number] [facility] [id number] [place] Qual W/Rflx Qn Positive (Abnormal) Comments: The sensitivity of Heterophile antibody testing is 80-90%.Sharmin Saunders IgM testing offers higher sensitivity. 64-Adi-871905:15 SUAD CULTURE-OTHER (26816) Comments: PATIENT NOT FASTINGPERFORMED BY: [place] [id number] [facility] [id number] Information: SRC:THRT [id number] Result 1 RRF (Normal) Comments: Routine respiratory herman Upper Respiratory Culture Final report (Normal) 48-Obl-071844:28 Rapid Strep Test, Office (77064) Rapid Strep Test, Office Negative (Normal) Plan of Care Name Dates Details Instructions BMI 31.0-31.9,adult : Follow up if no improvement or if symptoms worsen Indication: BMI 31.0-31.9,adult Gastroenteritis : Reviewed Diagnostic Tests Indication: Gastroenteritis Mesenteric adenitis : Reviewed Diagnostic Tests Indication: Mesenteric adenitis Mesenteric adenitis : Reviewed Lab Indication: Mesenteric adenitis BMI 31.0-31.9,adult : Eprescribed prescriptions (G8553) Indication: BMI 31.0-31.9,adult Current non-smoker but past smoking history unknown [...] sinusitis, unspecified Planned Observations Metabolic Panel, Comprehensive (26796)Indication: Abdominal pain, LLQ On: 61-Fnp-93608:56 Request CBC, Platelets & Auto Diff (24466)Indication: Abdominal pain, LLQ On: :55 Request AMYLASE (44541)Indication: Abdominal pain, LLQ On: :55 Request LIPASE (40265)Indication: Abdominal pain, LLQ On: :55 Request HEPATIC FUNCTION PANEL (87087)Indication: Elevated ALT measurement On: 1-Fbc-896690:59 Request CALCIFEDIOL (86908)Indication: Vitamin D deficiency On: 79-Swg-946155:[address] - Abdomen & Pelvis (IV Contrast Needed)By: Chel Chandra CNP On: 20-Oct-2018 Intent E Ultrasound - TesticularBy: Jessica Zacarias On: 07-Jul-2017 Intent SPECIMEN HNDLNG/TRNSPRT, OFFC > LAB (84829)By: Chel Chandra CNP On: 23-Mar-2013 Intent E Eprescribed prescriptions (G8553)By: Dorothy Person On: 23-Mar-2013 Intent Instructions Name Dates Details BMI 31.0-31.9,adult : How to access health information online Indication: BMI 31.0-31.9,adult BMI 31.0-31.9,adult : How to access health information online - Detail Indication: BMI 31.0-31.9,adult BMI 31.0-31.9,adult : Patient Instructions Indication: BMI 31.0-31.9,adult Current non-smoker but past smoking history unknown [...] Patient Instructions Indication: Fatigue Encounters Review On: 25-Oct-2018 14:11 [facility] Office Visit On: 25-Oct-2018 13:28 Encounter Reason: Follow up tests - Date: (10.20.18). Note for Discuss procedure results: Abdominal pain better but not goneEncounter Diagnosis: Current non- smoker but past smoking history unknown, BMI 31.0-31.9,adult, Mesenteric adenitis, End: 25-Oct-2018 13:58 Hiatal hernia, Umbilical hernia, Gastroenteritis [facility] Annotation/Addendum On: 20-Oct-2018 8:58 Encounter Diagnosis: Unspecified Diagnosis End: 20-Oct-2018 11:47 [facility] Office Visit On: 20-Oct-2018 [...] history of kidney stone. ??Weekend drinker. Builds [employer]., [ADDITIONAL REASON] Insomnia - Note for Insomnia: [...] Has looked into talking with someone in [place], but hasn't actually done it. Doesn't li [...] better. Hasn't looked into a counselor at is point in time. Feeling a lot [...] Has looked into talking with someone in [place], but hasn't actually done it. Doesn't li [...] groin pain, no swelling. 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
--- OUTSIDE RECORDS SUMMARY | 2018-12-25 01:11 | XMS RPT_ITS ---
:1990 Author Organization OHIP Care Team Providers Name Role Phone Evelyn Rodriguez DO Attending Unavailable Jennifer ARNOLD, Evelyn Referring Unavailable Jennifer ARNOLD, Evelyn Consulting Unavailable Chel Chandra Attending Unavailable Chel Chandra Referring Unavailable Evelyn Rodriguez Primary Care Unavailable Purpose Purpose PROBLEMS PROBLEMS DATE TYPE CONDITION / CODE ATTENDING STATUS SOURCE 10/20/2018 Unknown R10.32 - Left Chel Chandra Active [place] lower quadrant Formerly [facility] pain / Hospital R10.32(ICD-10) Repository PROCEDURES PROCEDURES No Procedure Records FoundVITAL SIGNS VITAL SIGNS No Vital Signs Records FoundRESULTS RESULTS ABDOMEN/PELVIS WITH Observed: 10/20/2018 Status: F Source: [place] CONTRAST 10:12 AM [facility] [place] Imaging Services [address] [place] [address] Abdomen/Pelvis WITH Contrast MR#: [id number] Acct: [id number] Name: RICHARD RAMÍREZ Rep #: [id number] : 1990 M 28 From: Sumanth Navarrete MD PCP: Evelyn Rodriguez DO Status: REG CLI Study: Abdomen/Pelvis WITH Contrast Date of Exam: 10/20/18 Exam# [id number] Ordering Dr: Chel Chandra LIQUOR RUNNER-C STUDY: CT ABDOMEN AND PELVIS WITH CONTRAST REASON FOR EXAM: Male, 28 years old. 5 day history of left lower quadrant pain. RADIATION DOSAGE (If Supplied By Facility): CTDIvol = ( 16.11 ) mGy, DLP = ( 1228.30 ) mGycm TECHNIQUE: Transaxial images were obtained from the dome of the diaphragm to the symphysis pubis without oral contrast. 100 ml of Isovue 300 contrast was administered. Sagittal and coronal images were reconstructed. Individualized dose optimization techniques were used for this CT. COMPARISON: None. FINDINGS: The visualized lung bases are unremarkable. The visualized portions of the heart are within normal limits. Normal liver. Normal gallbladder and extrahepatic biliary system. Normal spleen. Normal pancreas. Normal bilateral adrenal glands. Normal right kidney. Normal left kidney. There is a small hiatal hernia. Mild degree of the inflammatory changes is seen in the left lower quadrant adjacent to the small bowel loops. This may be related to gastroenteritis. Clinical correlation and follow-up examination is recommended. Limited assessment due to lack of oral contrast. Normal colon. Multiple small lymph nodes are seen in the root of the mesentery as well as in the right lower quadrant suggestive of mesenteric adenitis. The appendix is visualized and appears normal. Normal abdominal aorta. Normal inferior vena cava. There is borderline retroperitoneal lymphadenopathy with enlarged nodes no greater than 10mm in the short axis diameter. Normal urinary bladder. There is a small umbilical hernia containing fat. Straightening of the normal lumbar lordosis. CT/Abdomen/Pelvis WITH Contrast IMPRESSION: Findings suggest some mild inflammatory changes surrounding the small bowel loops in the left lower quadrant as described. Clinical correlation and follow-up examination following oral contrast is recommended. Mesenteric adenitis. Electronically Signed: Sumanth Navarrete MD at 10:44 EST Tel [phone], Service support , CC: Chel Chandra NP; Evelyn Rodriguez DO Phlebotomy Instructor: Signed CBC W/DIFF, AUTOMATED Collected: 10/20/2018 Status: F Source: [place] 9:28 AM [facility] [place] TYPE CODE TESTS RESULT OUT OF RANGE REFERENCE UNITS LAB L100.1000 4.4-11.0 K/mm3 Normal WBC 7.6 LAB L100.1200 4.6-6.2 M/mm3 Normal RBC 5.13 LAB L100.1300 13.0-16.5 g/dl Normal HGB 15.3 LAB L100.1400 40-54 % Normal HCT 44.9 LAB L100.1500 80-94 fL Normal MCV 87.5 LAB L100.1600 27.0-32.0 pg Normal MCH 29.8 LAB L100.1700 32-36 g/gl Normal MCHC 34.1 LAB L100.1810 11.6-14.6 % Normal RDW CV 12.3 LAB L100.1820 35.1-43.9 fl Normal RDW SD 39.3 LAB L100.1900 150-450 K/mm3 Normal PLT 227 LAB L100.2000 6.2-12.0 fl Normal MPV 8.8 LAB L100.2100 47-70 % Normal NEUT% 58.1 LAB L100.2200 19-41 % Normal LY% 32.9 LAB L100.2300 0-10 % Normal MONO% 7.4 LAB L100.2400 0-5 % Normal EO% 0.8 LAB L100.2500 0-1 % Normal BASO% 0.4 LAB L100.2550 0.0-0.9 % Normal IM GRAN % 0.400 Result Comment: IG% - Immature Granulocytes (promyelocytes, myelocytes and metamyelocytes) > 1% indicates that a LEFT SHIFT is Present. LAB L100.2620 2.0-7.7 X10 3/uL Normal Absolute Neut 4.4 LAB L100.2720 0.83-4.51 X10 3/ul Normal Absolute Lymph 2.49 Performed By: #### L100.0100 #### [facility] [address] [place], [address] COMPREHENSIVE METABOLIC Collected: 10/20/2018 Status: F Source: [facility] 9:28 AM [facility] [place] TYPE CODE TESTS RESULT OUT OF RANGE REFERENCE UNITS LAB L501.0100 74-106 mg/dL High GLU 112 Result Comment: Fasting Glucose result from 100 to 125 mg/dL suggests IMPAIRED HOMEOSTASIS per A.D.A. criteria. Please note revised GLUCOSE reference range effective 2017. LAB L501.1000 7-18 mg/dL Normal BUN 15 LAB L501.1100 0.70-1.30 mg/dL Normal CREAT,SERUM 0.86 Result Comment: The validity of the calculated GFR AND GFRAA in patients over 70 years has not been determined. Clinical correlation is essential. LAB L501.1110 >60 mL/min Normal EST GFR 113 Result Comment: Non- GFR Calc LAB L501.1115 >60 mL/min Normal EST GFR - AA 137 Result Comment: GFR Calc LAB L501.1300 10-20 RATIO Normal BUN/CRE 17.5 LAB L501.1500 6.4-8.2 g/dL T Normal PROT 7.4 LAB L501.1800 3.2-5.0 g/dL Normal ALB 4.1 LAB L501.1950 2.2-4.2 g/dL Normal GLOB 3.3 LAB L501.2000 0.9-2.4 RATIO Normal A/G 1.2 LAB L501.2200 8.5-10.1 mg/dL CA Normal 9.0 LAB L501.4100 15-37 U/L Normal AST 19 LAB L501.4305 45-117 U/L Normal ALK P 76 LAB L501.4405 16-61 U/L Normal ALT 57 LAB L501.4600 0.20-1.00 mg/dL T Normal BILI 0.60 LAB L501.5300 136-145 mmol/L NA Normal 141 LAB L501.5600 3.5-5.1 mmol/L K Normal 4.3 LAB L501.5900 98-107 mmol/L CL Normal 107 LAB L501.6100 21.0-32.0 mmol/L Normal CO2 26.0 LAB L501.6200 5-15 Normal GAP 8 Performed By: #### L500.4050, L501.2400, L501.2450 #### [facility] [address] [place], [place], [address] AMYLASE Collected: 10/20/2018 Status: F Source: [place] 9:28 AM [facility] [place] TYPE CODE TESTS RESULT OUT OF RANGE REFERENCE UNITS LAB L501.2400 25-115 U/L Normal TESSY 38 Performed By: #### L500.4050, L501.2400, L501.2450 #### [facility] [address] [place], [address] LIPASE Collected: 10/20/2018 Status: F Source: [place] 9:28 AM [facility] [place] TYPE CODE TESTS RESULT OUT OF RANGE REFERENCE UNITS LAB L501.2450 73-393 U/L Normal LIPASE 145 Performed By: #### L500.4050, L501.2400, L501.2450 #### [facility] [address] [place], [address] ALLERGIES ALLERGIES No Allergies Records FoundENCOUNTERS ENCOUNTERS ADMIT/DISCHARGE ACCOUNT ADMITTING ENCOUNTER LOCATION SOURCE NUMBER CLASS 10/20/2018 [id number] Ambulatory Building:[facility] [place] Practices Repository 10/20/2018 [id number] Ambulatory [facility] ing:CT Repository FUNCTIONAL STATUS FUNCTIONAL STATUS No Functional Status Records FoundEQUIPMENT EQUIPMENT No Equipment Records FoundPAYERS PAYERS ENCOUNTER GUARANTOR PAYER SUBSCRIBER SOURCE 10/20/2018 Richard Villarreal Primary Richard Villarreal [facility] PribonicDOB: Insurance:Percival PribonicDOB: Repository [id number] /[facility] Number: [id number] Pily [id number] [address] [place], [place] Date:6412-44-55[place]fkvParrish, [place] [address]Oep: ([phone]) Name:[facility] [address]Yef: [id number] [place] [address] [phone] () (HP)Tel: [phone]: [phone] 10/20/2018 [facility] Practices Insurance:Medical PribonicDOB: Repository [facility] [id number] Number: [address] [id number] [place], [place] Date:2009-10-05 [address]Chf: [phone] (HP) Name:[address], [place] [id number]: 10/20/2018 RICHARD Villarreal Primary RICHARD [id number] Insurance:ANTHEMPolic PRIBONICDOB: Community [place] Number: [id number] [place] [id number] Repository [address]Cnh: ([phone]) Date:1072-80-45[phone] () [address]ITWCHC, [place] [address]FR: 10/20/2018 Secondary NOT GIVENUNK Joelle Insurance:SELF PAY [facility] Number: Effective Repository Date:2018-10-20 SOCIAL HISTORY SOCIAL HISTORY No Social History Records FoundFAMILY HISTORY FAMILY HISTORY No Family History Records FoundPREGNANCY No Status Records FoundADVANCE DIRECTIVES ADVANCE DIRECTIVES No Advanced Directives Records FoundINFORMATION SOURCE INFORMATION SOURCE DATE CREATED AUTHOR AUTHOR'S ORGANIZATION 10/30/2018 K[facility]
--- OUTSIDE RECORDS SUMMARY | 2018-12-25 01:11 | XMS RPT_ITS | Continuity of Care Document ---
:1990 Author Organization [facility] Address [facility] [address] Phone Care Team Providers Name Role Phone Evelyn Rodriguez DO Unavailable Sy SYED, Dr. Justin Gonzalez Unavailable Prateek GELLER, Chel Sosa Unavailable Gravius, Viviane Unavailable Unavailable Slarb USED CAR MANAGER, Mary Jane Unavailable Unavailable Unavailable Unavailable Problems [...] : 11-Jan-2010 End : 21-Jan-2010 Inactive Ergocalciferol 72271 UNIT Oral Capsule 1 (one) Capsule Capsule [...] Start : 18-Jan-2018 End : 21-Jan-2018 Inactive Comments:Qxxylpnx-[id number]-378Vdfsviyql-000OD Risk-150Dx: Anxiety (F41.9) NASONEX, 50MCG/ACT (Nasal Suspension) [...] WITH Contrast Result: Comments: See Note; NOTES: [facility] Imaging Services [address] [place] [address] Abdomen/Pelvis WITH Contrast MR#: [id number] Acct: [id number] Name: RICHARD RAMÍREZ Rep # : [id number] : 1990 M 28 From: Sumanth Navarrete MD PCP: Evelyn Rodriguez DO Status: REG CLI Study: Abdomen/Pelvis WITH Contrast Date of Exam: 10/20/18 Exam# [id number] Ordering Dr: Chel Chandra PElli STUDY: CT ABDOMEN AND PELVIS WITH CONTRAST [...] Sumanth Navarrete MD at 10:44 EST Tel [phone], Service support , CC: Chel Chandra NP; Evelyn Rodriguez DO Decorator Hand: Signed 07-Jul-2017 Testicular with Arterial Flow Result: Comments: See Note; NOTES: [facility] Imaging Services [address] [place] [address] Testicular with Arterial Flow MR#: [id number] Acct: [id number] Name: RICHARD RAMÍREZ Rep #: [id number] : 1990 M 27 From: Alejandrina Roche MD PCP: Evelyn Rodriguez DO Status: REG CLI Study: Testicular with Arterial Flow Date of Exam: 07/07/17 Exam# [id number] Ordering Dr: Jessica Zacarias TRANSIT AUTHORITY POLICE OFFICER-C STUDY: SCROTUM ULTRASOUND REASON FOR EXAM: Male, [...] riki ticular mass. See above. Electronically Signed: Alejandrian Roche MD at 19:09 EDT Tel , Service support , CC: FIOR Zacarias; Evelyn Rodriguez DO Decorator Hand: Signed Family History Unknown Family Member Name [...] Active Vital Signs Date Test Result Details :17 Temperature 98.8 f Pulse 103 /min [...] Date Description Value Details :28 Amylase Comments: [facility] [address] [place], [address] TESSY 38 U/L (Normal) Range: 25-115 :28 CBC W/Diff, Automated Comments: [facility] [address] [place], [address] Absolute Lymph 2.49 {X10_3/ul} (Normal) Range: 0.83-4.51 [...] 4.6-6.2 WBC 7.6 K/mm3 (Normal) Range: 4.4-11.0 32-Eif-78860:28 Comprehensive Metabolic Profil Comments: [facility] [address] [place], [address] GAP 8 (Normal) Range: 5-15 CO2 26.0 [...] A.D.A. criteria.Please note revised GLUCOSE reference range ampavaxpa07/02/2018. 72-Bvy-44240:28 Lipase Comments: [facility] [address] [place], [address] LIPASE 145 U/L (Normal) Range: 73-393 49-Edu-84961:42 Urinalysis, Office (01805) UA - LEUKOCYTE ESTERASE Negative (Normal) UA - NITRITE Negative (Normal) URINE UROBILINGN RAFAEL TIMED 2 mg/dL (Normal) UA - PROTEIN Negative mg/dL (Normal) UA - PH 6.0 (Normal) UA - BLOOD Negative (Normal) UA - SPECIFIC GRAVITY 1.030 (Abnormal) UA - KETONES Negative mg/dL (Normal) UA - BILIRUBIN Negative (Normal) UA - GLUCOSE Negative (Normal) 04-Njh-017247:15 HEPATIC FUNCTION PANEL Comments: PATIENT NOT FASTINGPERFORMED BY: [facility] Pbburb9657 [facility] [id number] (83315) ALT (SGPT) 53 [iU]/L (Abnormal) Range: 0-44 AST (SGOT) 20 [iU]/L (Normal) Range: 0-40 Alkaline Phosphatase 74 [iU]/L (Normal) Range: 39-117 Bilirubin, Direct 0.12 mg/dL (Normal) Range: 0.00-0.40 Bilirubin, Total 0.3 mg/dL (Normal) Range: 0.0-1.2 Albumin 4.9 g/dL (Normal) Range: 3.5-5.5 Protein, Total 6.8 g/dL (Normal) Range: 6.0-8.5 24-Ktx-741224:06 VITAMIN B-12 (CYANOCOBALAMIN) Comments: PATIENT NOT FASTINGPERFORMED BY: [facility] Kgbcuh9454 [address] RoadDublin [place] [id number] (79189) Vitamin B12 528 pg/mL (Normal) Range: 232-1245 10-Gqi-300608:06 MAGNESIUM (27291) Comments: PATIENT NOT FASTINGPERFORMED BY: [facility] Jqgfca9555 [address]au RoadDublin [place] [id number] Magnesium 2.0 mg/dL (Normal) Range: 1.6-2.3 14-Udr-678106:06 CALCIFIDIOL (94834) VIT D 25 Comments: PATIENT NOT FASTINGPERFORMED BY: CB [facility] Twskdj56[address] RoadDublin [place] [id number] Vitamin D, 25-Hydroxy 25.0 ng/mL (Abnormal) Range: 30.0-100.0 Comments: Vitamin D deficiency has been defined by the [place] of[facility] Hospitalcine and an Endocrine Society practice guideline as alevel of serum 25-OH vitamin D less than 20 ng/mL (1,2).The Endocrine Society went on to further define vitamin Dinsufficiency as a level between 21 and 29 ng/mL (2).1. IOM ([place] of Medicine). 2010. Dietary reference intakes for calcium and D. [place]: The National Academies Press.2. Kimberley MF, Casey [place], Mary GAINES, et al. Evaluation, treatment, and prevention of vitamin D deficiency: an Endocrine Society clinical practice guideline. JCEM. 2010; 96(7):1911-30. 71-Xdp-652292:06 METABOLIC PANEL, COMPREHENSIVE Comments: PATIENT NOT FASTINGPERFORMED BY: [facility] ElmerZkriui7543 [facility] [id number] (38166) ALT (SGPT) 49 [iU]/L (Abnormal) Range: 0-44 [...] 6-20 Glucose 95 mg/dL (Normal) Range: 65-99 61-Yls-185335:06 TSH (THYROID STIMULATING Comments: PATIENT NOT FASTINGPERFORMED BY: [facility] ElmerUrgiby2582 [facility] [id number] HORMONE) (08884) TSH 1.690 {uIU/mL} (Normal) Range: 0.450-4.500 :32 Mononucleosis Test, Quant Comments: PATIENT NOT FASTINGPERFORMED BY: [facility] ElmerCoaqgt7394 [facility] [id number] [place] Titer 1:64 (Abnormal) 27-Cgf-656563:32 EBV Panel (61874) Comments: PATIENT NOT FASTINGPERFORMED BY: [facility]6370 [facility] [id number] Interpretation: SPRCS (Normal) Comments: EBV Interpretation Chart [...] <0.9 Equivocal 0.9 - 1.0 Positive >1.0 43-Gep-516069:32 CBC & PLATELETS (AUTO) Comments: PATIENT NOT FASTINGPERFORMED BY: [facility] ElmerVhnqad7057 [facility] [id number] Information: [id number],U17485 (64387) Platelets 141 {x10E3/uL} (Normal) Range: 140-415 RDW 12.9 % (Normal) Range: 12.3-15.4 MCHC 34.9 g/dL (Normal) Range: 31.5-35.7 MCH 30.3 pg (Normal) Range: 26.6-33.0 MCV 87 fL (Normal) Range: 79-97 Hematocrit 45.8 % (Normal) Range: 37.5-51.0 Hemoglobin 16.0 g/dL (Normal) Range: 12.6-17.7 RBC 5.28 {x10E6/uL} (Normal) Range: 4.14-5.80 WBC 8.8 {x10E3/uL} (Normal) Range: 4.0-10.5 :32 MONOSPOT TEST (37309) Comments: PATIENT NOT FASTINGPERFORMED BY: [facility] ElmerFcvaga6936 [facility] [id number] [place] Qual W/Rflx Qn Positive (Abnormal) Comments: The sensitivity of Heterophile antibody testing is 80-90%.Sharmin Saunders IgM testing offers higher sensitivity. :15 SUAD CULTURE-OTHER (72083) Comments: PATIENT NOT FASTINGPERFORMED BY: [facility] ElmerYgplhu7086 [facility] [id number] Information: SRC:THRT [id number] Result 1 RRF (Normal) Comments: Routine respiratory herman Upper Respiratory Culture Final report (Normal) :28 Rapid Strep Test, Office (08698) Rapid Strep Test, Office Negative (Normal) Plan [...] sinusitis, unspecified Planned Observations Metabolic Panel, Comprehensive (27537)Indication: Abdominal pain, LLQ On: :56 Request CBC, Platelets & Auto Diff (33582)Indication: Abdominal pain, LLQ On: :55 Request AMYLASE (94680)Indication: Abdominal pain, LLQ On: :55 Request LIPASE (69236)Indication: Abdominal pain, LLQ On: :55 Request HEPATIC FUNCTION PANEL (51300)Indication: Elevated ALT measurement On: 2-Tlp-317201:59 Request CALCIFEDIOL (33264)Indication: Vitamin D deficiency On: 31-Sbi-632033:13 Request Planned Encounters Medical; Quick FU - On: 25-Oct-2018 13:30 [facility] Chel Chandra CNP Planned Procedures CT - Abdomen & Pelvis (IV Contrast Needed)By: Chel Chandra CNP On: 20-Oct-2018 Intent E Ultrasound - TesticularBy: Jessica Zacarias On: 07-Jul-2017 Intent SPECIMEN HNDLNG/TRNSPRT, OFFC > LAB (74137)By: Chel Chandra CNP On: 23-Mar-2013 Intent E [...] Patient Instructions Indication: Fatigue Encounters Annotation/Addendum On: 20-Oct-2018 8:58 Encounter Diagnosis: Unspecified [...] history of kidney stone. ??Weekend drinker. Builds [employer] [ADDITIONAL REASON] Insomnia - Note for Insomnia: [...] Has looked into talking with someone in [place], but hasn't actually done it. Doesn't li [...] Has looked into talking with someone in [place], but hasn't actually done it. Doesn't li [...] groin pain, no swelling. ??He is a wash and greaser-lifts heavy objects occassionally.Encounter Diagnosis: BMI 31.0-31.9,adult, Smoker, [...]
== END ==
PROVIDERS: Family Provider Internal Medicine; PCP Internal Medicine; Referring Provider Nurse Practitioner; Visit Provider Nurse Practitioner
DX: R10.32 Left lower quadrant pain (principal)
CPT/HCPCS: 36415; 74177; 80053; 82150; 83690; 85025; Q9967

== ENCOUNTER → 2021-03-13 15:40 | Outpatient (CLI) | payer BC, SELFPAY ==
[2021-03-13 18:03] LABS: Amphetamine Urine VISTA NEGATIVE (<1000 ng/mL); Barbiturate Urine VISTA NEGATIVE (< 200 ng/mL); Benzodiazepine Urine VISTA NEGATIVE (< 200 ng/mL); Cocaine Urine VISTA NEGATIVE (< 300 ng/mL); Ecstacy Urine VISTA NEGATIVE (< 500 ng/mL); Methadone Urine VISTA NEGATIVE (< 300 ng/mL); PCP Urine VISTA NEGATIVE (< 25 ng/mL); THC Urine VISTA NEGATIVE (< 50 ng/mL); Vista UDS pH Range 6
== END ==
PROVIDERS: PCP Internal Medicine; Referring Provider Internal Medicine Pulmonary Disease; Visit Provider Internal Medicine Pulmonary Disease
DX: G47.10 Hypersomnia, unspecified (principal)
CPT/HCPCS: 80307

== ENCOUNTER → 2021-04-08 10:05 | Outpatient (CLI) | payer BC, SELFPAY ==
[2021-04-08 10:49] LABS: AST(SGOT) 29 U/L (15-37); Alanine Aminotransfer ALT/SGPT 103 U/L (16-61); Albumin, Serum 4.2 g/dL (3.2-5.0); Alkaline Phosphatase 73 U/L (45-117); Bilirubin, Direct 0.19 mg/dL (0.00-0.30); Globulin 3.3 g/dL (2.2-4.2); Glucose 97 mg/dL (74-106); Iron 123 ug/dL (65-175); Protein, Total 7.5 g/dL (6.4-8.2); Thyroid Stim Hormone (TSH) 1.11 uIU/mL (0.358-3.74)
[2021-04-09 08:39] LABS: Vitamin D,25 Hydroxy 27.4 ng/mL
== END ==
PROVIDERS: PCP Internal Medicine; Referring Provider Internal Medicine Pulmonary Disease; Visit Provider Internal Medicine Pulmonary Disease
DX: G47.10 Hypersomnia, unspecified (principal)
CPT/HCPCS: 36415; 80076; 82306; 82947; 83540; 84403; 84443